=== PATIENT | male | born 1930 | race Caucasian/White ===

== ENCOUNTER 2017-11-03 16:10 | Inpatient (IN) | payer MEDICARE, BC ==
[~2017-11-03] VITALS: Ht 170.2 cm; Wt 69.4 kg
[~2017-11-03 16:10] MED LIST: ADV50250 IH; ALBU18HF2 IH; LISI10TA4 PO; LOVA10TA56 PO; NORCO10T PO; PLE50T PO
[2017-11-03 16:53] LABS: BASOPHILS % (AUTO) 0.2 % (0-1); EOSINOPHILS % (AUTO) 0 % (0-6); HEMATOCRIT 33.4 % (42.0-52.0); HEMOGLOBIN 11.7 g/dl (14.0-17.9); LYMPHOCYTES # (AUTO) 0.4 X10'3 (1.1-4.8); LYMPHOCYTES % (AUTO) 2.3 % (21-51); MEAN CORPUSCULAR HEMOGLOBIN 31.4 PG (27.0-31.0); MEAN CORPUSCULAR VOLUME 89.6 FL (78-98); MEAN PLATELET VOLUME 8.8 FL (7.4-10.4); MONOCYTES # (AUTO) 1.5 X10'3 (0-0.9); MONOCYTES % (AUTO) 9.1 % (2-12); NEUTROPHILS # (AUTO) 14.9 X10'3 (1.8-7.7); NEUTROPHILS % (AUTO) 88.4 % (42-75); PLATELET COUNT 206 X10'3 (140-440); RED BLOOD COUNT 3.73 X10'6 (4.70-6.10); RED CELL DISTRIBUTION WIDTH 14.3 % (11.5-14.5); WHITE BLOOD COUNT 16.9 X10'3 (4.5-11.0)
[2017-11-03] MEDS ORDERED: azithromycin/NS 500mg/250ml 250 ML IV ONE (17:00)
[2017-11-03] MEDS ORDERED: ipratropium/albuterol 3ml nebule NEB ONE (17:00)
[2017-11-03] MEDS ORDERED: CefTRIAXone 2gm/D5W 50ml 50 ML IV ONE (17:00)
[2017-11-03] MEDS ORDERED: methylPREDNISolone sod succ 125mg/2ml vial IV ONE (17:00)
[2017-11-03 17:03] LABS: INR 1.1 INR; PARTIAL THROMBOPLASTIN TIME 30 SECONDS (22-32); PROTHROMBIN TIME 11.1 SECONDS (9.0-12.0)
[2017-11-03 17:06] LABS: TOTAL CELLS COUNTED 100
[2017-11-03 17:07] LABS: PLATELET ESTIMATE NORMAL
[2017-11-03 17:08] LABS: ALANINE AMINOTRANSFERASE 24 U/L (12-78); ALBUMIN 3.5 G/DL (3.4-5.0); ALBUMIN/GLOBULIN RATIO 0.8 (1.1-1.5); ALKALINE PHOSPHATASE 88 IU/L (46-116); ANION GAP 13 (8-16); ASPARTATE AMINO TRANSFERASE 21 U/L (10-37); BILIRUBIN,TOTAL 1.2 MG/DL (0.1-1.0); BLOOD UREA NITROGEN 37 MG/DL (7-18); BUN/CREATININE RATIO 23.4 (5.4-32.0); CALCIUM 8.7 MG/DL (8.5-10.1); CHLORIDE 103 MMOL/L (99-107); CREATININE 1.58 MG/DL (0.60-1.10); GLUCOSE 152 MG/DL (70-104); POTASSIUM 3.6 MMOL/L (3.5-5.1); SODIUM 136 MMOL/L (135-145); TOTAL CARBON DIOXIDE 19.8 MMOL/L (24-32); eGFR 42 ML/MIN
[2017-11-03] MEDS ORDERED: AMLO5TAB PO (17:15)
[2017-11-03] MEDS ORDERED: normal saline 1000ML IV soln IVB ONE (17:20)
[2017-11-03] MEDS ORDERED: acetaminophen 325mg tablet PO PRN (17:45)
[2017-11-03] MEDS ORDERED: magnesium hydroxide 30ml (MOM) UD suspension PO PRN (17:45)
[2017-11-03] MEDS ORDERED: diltiazem 30mg tablet PO ONE (17:50)
[2017-11-03] MEDS: magnesium 1gm/100ml D5W IVPB 100 ML IV SCH ×2 (17:52→18:11)
[2017-11-03] MEDS: normal saline 1000ml 1,000 ML IV SCH (18:02)
[2017-11-03] MEDS ORDERED: enoxaparin 60mg/0.6ml syringe SUBCUT ONE (18:05)
[2017-11-03 18:30] VITALS: BP 137/60
[2017-11-03] MEDS: ipratropium/albuterol 3ml nebule NEB SCH ×2 (19:39→23:30)
[2017-11-03] MEDS: diltiazem 30mg tablet PO SCH (19:44)
[2017-11-03] MEDS: methylPREDNISolone sod succ 125mg/2ml vial IV SCH (19:44)
[2017-11-03] MEDS ORDERED: heparin, porcine 5000 units/ml vial SQ SCH (20:00)
[2017-11-03 23:00] VITALS: BP 120/49
[2017-11-04] MEDS: diltiazem 30mg tablet PO SCH ×4 (02:41→19:31)
[2017-11-04] MEDS: methylPREDNISolone sod succ 125mg/2ml vial IV SCH ×3 (02:41→19:31)
[2017-11-04 03:00] VITALS: BP 137/56
[2017-11-04] MEDS: ipratropium/albuterol 3ml nebule NEB SCH ×6 (03:26→23:30)
[2017-11-04] MEDS: normal saline 1000ml 1,000 ML IV SCH ×2 (04:32→13:42)
[2017-11-04 05:04] LABS: BASOPHILS % (AUTO) 0 % (0-1); EOSINOPHILS # (AUTO) 0.1 X10'3 (0-0.9); EOSINOPHILS % (AUTO) 1.2 % (0-6); HEMATOCRIT 29.2 % (42.0-52.0); HEMOGLOBIN 9.9 g/dl (14.0-17.9); LYMPHOCYTES # (AUTO) 0.3 X10'3 (1.1-4.8); LYMPHOCYTES % (AUTO) 2.2 % (21-51); MEAN CORPUSCULAR HEMOGLOBIN 30.8 PG (27.0-31.0); MEAN CORPUSCULAR HGB CONC 33.9 % (33.0-36.5); MEAN CORPUSCULAR VOLUME 90.8 FL (78-98); MEAN PLATELET VOLUME 9.2 FL (7.4-10.4); MONOCYTES # (AUTO) 0.3 X10'3 (0-0.9); MONOCYTES % (AUTO) 2.8 % (2-12); NEUTROPHILS # (AUTO) 11.4 X10'3 (1.8-7.7); NEUTROPHILS % (AUTO) 93.8 % (42-75); PLATELET COUNT 152 X10'3 (140-440); RED BLOOD COUNT 3.21 X10'6 (4.70-6.10); RED CELL DISTRIBUTION WIDTH 14.4 % (11.5-14.5); WHITE BLOOD COUNT 12.1 X10'3 (4.5-11.0)
[2017-11-04 05:56] LABS: ALBUMIN 2.7 G/DL (3.4-5.0); ANION GAP 14 (8-16); BLOOD UREA NITROGEN 33 MG/DL (7-18); BUN/CREATININE RATIO 24.3 (5.4-32.0); CALCIUM 7.4 MG/DL (8.5-10.1); CHLORIDE 105 MMOL/L (99-107); CREATININE 1.36 MG/DL (0.60-1.10); GLUCOSE 261 MG/DL (70-104); POTASSIUM 3.4 MMOL/L (3.5-5.1); SODIUM 135 MMOL/L (135-145); TOTAL CARBON DIOXIDE 16.5 MMOL/L (24-32); eGFR 50 ML/MIN
[2017-11-04 07:00] VITALS: BP 97/55
[2017-11-04] MEDS: azithromycin/NS 500mg/250ml 250 ML IV SCH (08:33)
[2017-11-04] MEDS: CefTRIAXone 2gm/D5W 50ml 50 ML IV SCH (08:33)
[2017-11-04 11:00] VITALS: BP 132/59
[2017-11-04] MEDS ORDERED: albuterol 2.5 MG/3 ML nebule NEB PRN (13:00)
[2017-11-04] MEDS: apixaban 5mg tablet PO SCH ×2 (13:04→19:32)
[2017-11-04 15:00] VITALS: BP 137/64
[2017-11-04 19:00] VITALS: BP 138/66
[2017-11-04] MEDS: lactobacillus rhamnosus 10,000 MMU CELLS/CAPSULE PO SCH (19:32)
[2017-11-04] MEDS: cilostazol 50mg tablet PO SCH (19:33)
[2017-11-04] MEDS: budesonide 0.5mg/2ml UD nebule IH SCH (20:14)
[2017-11-04] MEDS: ondansetron/PF 4mg/2ml inj IV PRN (22:59)
[2017-11-04 23:00] VITALS: BP 138/75
[2017-11-05] MEDS: normal saline 1000ml 1,000 ML IV SCH (01:13)
[2017-11-05] MEDS: diltiazem 30mg tablet PO SCH ×4 (01:13→21:10)
[2017-11-05 03:00] VITALS: BP 130/61
[2017-11-05] MEDS: ipratropium/albuterol 3ml nebule NEB SCH ×6 (03:24→23:31)
[2017-11-05 05:09] LABS: BASOPHILS % (AUTO) 0 % (0-1); EOSINOPHILS % (AUTO) 0 % (0-6); HEMATOCRIT 31.1 % (42.0-52.0); HEMOGLOBIN 10.6 g/dl (14.0-17.9); LYMPHOCYTES # (AUTO) 0.3 X10'3 (1.1-4.8); LYMPHOCYTES % (AUTO) 1.4 % (21-51); MEAN CORPUSCULAR HEMOGLOBIN 30.6 PG (27.0-31.0); MEAN CORPUSCULAR HGB CONC 34.1 % (33.0-36.5); MEAN CORPUSCULAR VOLUME 89.7 FL (78-98); MEAN PLATELET VOLUME 9.2 FL (7.4-10.4); MONOCYTES # (AUTO) 1.1 X10'3 (0-0.9); MONOCYTES % (AUTO) 4.4 % (2-12); NEUTROPHILS # (AUTO) 23.6 X10'3 (1.8-7.7); NEUTROPHILS % (AUTO) 94.2 % (42-75); PLATELET COUNT 195 X10'3 (140-440); RED BLOOD COUNT 3.47 X10'6 (4.70-6.10); RED CELL DISTRIBUTION WIDTH 14.6 % (11.5-14.5)
[2017-11-05 05:32] LABS: ALBUMIN 2.9 G/DL (3.4-5.0); ANION GAP 12 (8-16); BLOOD UREA NITROGEN 29 MG/DL (7-18); BUN/CREATININE RATIO 22.8 (5.4-32.0); CALCIUM 7.5 MG/DL (8.5-10.1); CHLORIDE 105 MMOL/L (99-107); CREATININE 1.27 MG/DL (0.60-1.10); GLUCOSE 164 MG/DL (70-104); POTASSIUM 3.4 MMOL/L (3.5-5.1); SODIUM 136 MMOL/L (135-145); TOTAL CARBON DIOXIDE 18.8 MMOL/L (24-32); eGFR 54 ML/MIN
[2017-11-05 05:36] LABS: WHITE BLOOD COUNT 25.1 X10'3 (4.5-11.0)
[2017-11-05 06:00] LABS: PLATELET ESTIMATE NORMAL; TOTAL CELLS COUNTED 100
[2017-11-05] MEDS ORDERED: potassium Cl 20 mEq SR tablet PO PRN (06:40)
[2017-11-05] MEDS ORDERED: magnesium 1gm/100ml D5W IVPB 100 ML IV PRN (06:40)
[2017-11-05] MEDS ORDERED: magnesium Cl slow-release 64mg tablet PO PRN (06:40)
[2017-11-05] MEDS ORDERED: magnesium 4gm in 100ml NS 100 ML IV PRN (06:40)
[2017-11-05] MEDS ORDERED: potassium Cl 40MEQ/NS 500ml 500 ML IV PRN ×2 (06:40)
[2017-11-05 07:03] VITALS: BP 135/63
[2017-11-05] MEDS: atorvastatin 10mg tablet PO SCH (07:47)
[2017-11-05] MEDS: cilostazol 50mg tablet PO SCH ×2 (07:47→21:10)
[2017-11-05] MEDS: apixaban 5mg tablet PO SCH ×2 (07:48→21:10)
[2017-11-05] MEDS: lactobacillus rhamnosus 10,000 MMU CELLS/CAPSULE PO SCH ×2 (07:48→21:10)
[2017-11-05] MEDS: potassium Cl 20 mEq SR tablet PO PRN ×3 (07:48→16:48)
[2017-11-05] MEDS: lisinopril 10 MG tablet PO SCH (07:49)
[2017-11-05] MEDS: CefTRIAXone 2gm/D5W 50ml 50 ML IV SCH (07:50)
[2017-11-05] MEDS: azithromycin/NS 500mg/250ml 250 ML IV SCH (07:50)
[2017-11-05] MEDS: ondansetron/PF 4mg/2ml inj IV PRN ×3 (07:50→21:11)
[2017-11-05] MEDS: methylPREDNISolone sod succ 125mg/2ml vial IV SCH ×2 (07:50→19:54)
[2017-11-05] MEDS: budesonide 0.5mg/2ml UD nebule IH SCH ×2 (08:10→20:03)
[2017-11-05 11:00] VITALS: BP 144/57
[2017-11-05 15:00] VITALS: BP 137/55
[2017-11-05] MEDS: mag hydrox/Alum hydrox/simeth 30ml oral suspension PO PRN (16:48)
[2017-11-05 19:00] VITALS: BP 101/42
[2017-11-05] MEDS: psyllium seed 3.4 gm packet PO SCH (20:00)
[2017-11-05 23:00] VITALS: BP 126/57
[2017-11-06] VITALS (7 sets, daily range): BP systolic 107–133; BP diastolic 50–95
[2017-11-06] MEDS: ipratropium/albuterol 3ml nebule NEB SCH ×6 (03:39→23:39)
[2017-11-06] MEDS: ondansetron/PF 4mg/2ml inj IV PRN ×2 (03:51→23:00)
[2017-11-06] MEDS: diltiazem 30mg tablet PO SCH ×4 (03:52→20:33)
[2017-11-06 05:24] LABS: BASOPHILS % (AUTO) 0 % (0-1); EOSINOPHILS # (AUTO) 0.3 X10'3 (0-0.9); EOSINOPHILS % (AUTO) 1.2 % (0-6); LYMPHOCYTES # (AUTO) 0.3 X10'3 (1.1-4.8); LYMPHOCYTES % (AUTO) 1.3 % (21-51); MEAN CORPUSCULAR HEMOGLOBIN 31.2 PG (27.0-31.0); MEAN CORPUSCULAR HGB CONC 34.4 % (33.0-36.5); MEAN CORPUSCULAR VOLUME 90.7 FL (78-98); MEAN PLATELET VOLUME 9.6 FL (7.4-10.4); MONOCYTES % (AUTO) 3.9 % (2-12); NEUTROPHILS # (AUTO) 23.2 X10'3 (1.8-7.7); NEUTROPHILS % (AUTO) 93.6 % (42-75); PLATELET COUNT 216 X10'3 (140-440); RED BLOOD COUNT 3.53 X10'6 (4.70-6.10); RED CELL DISTRIBUTION WIDTH 14.3 % (11.5-14.5); WHITE BLOOD COUNT 24.8 X10'3 (4.5-11.0)
[2017-11-06 05:30] LABS: ALBUMIN 2.9 G/DL (3.4-5.0); ANION GAP 11 (8-16); BLOOD UREA NITROGEN 43 MG/DL (7-18); BUN/CREATININE RATIO 24.7 (5.4-32.0); CALCIUM 7.9 MG/DL (8.5-10.1); CHLORIDE 105 MMOL/L (99-107); CREATININE 1.74 MG/DL (0.60-1.10); GLUCOSE 143 MG/DL (70-104); MAGNESIUM 2.4 MG/DL (1.5-2.4); POTASSIUM 4.3 MMOL/L (3.5-5.1); SODIUM 135 MMOL/L (135-145); TOTAL CARBON DIOXIDE 19.2 MMOL/L (24-32); eGFR 37 ML/MIN
[2017-11-06] MEDS: budesonide 0.5mg/2ml UD nebule IH SCH ×2 (06:50→19:46)
[2017-11-06] MEDS: cilostazol 50mg tablet PO SCH ×2 (07:21→20:32)
[2017-11-06] MEDS: lisinopril 10 MG tablet PO SCH (07:21)
[2017-11-06] MEDS: apixaban 5mg tablet PO SCH (07:23)
[2017-11-06] MEDS: lactobacillus rhamnosus 10,000 MMU CELLS/CAPSULE PO SCH ×2 (07:23→20:33)
[2017-11-06] MEDS: atorvastatin 10mg tablet PO SCH (07:23)
[2017-11-06] MEDS: methylPREDNISolone sod succ 125mg/2ml vial IV SCH ×2 (07:23→20:31)
[2017-11-06] MEDS: azithromycin/NS 500mg/250ml 250 ML IV SCH (07:24)
[2017-11-06] MEDS: psyllium seed 3.4 gm packet PO SCH ×2 (07:30→20:34)
[2017-11-06 07:32] LABS: NUCLEATED RED BLOOD CELLS 5 /100WBC (0-0); PLATELET ESTIMATE NORMAL; TOTAL CELLS COUNTED 100
[2017-11-06] MEDS: CefTRIAXone 2gm/D5W 50ml 50 ML IV SCH (09:13)
[2017-11-06] MEDS ORDERED: furosemide 40mg/4ml inj IV ONE (13:00)
[2017-11-06] MEDS: apixaban 2.5mg tablet PO SCH (20:33)
[2017-11-07] MEDS: diltiazem 30mg tablet PO SCH ×4 (01:44→19:55)
[2017-11-07 03:00] VITALS: BP 144/65
[2017-11-07] MEDS: ipratropium/albuterol 3ml nebule NEB SCH ×6 (03:19→23:48)
[2017-11-07 05:01] LABS: BASOPHILS % (AUTO) 0 % (0-1); EOSINOPHILS # (AUTO) 0.3 X10'3 (0-0.9); EOSINOPHILS % (AUTO) 1.1 % (0-6); HEMOGLOBIN 10.9 g/dl (14.0-17.9); LYMPHOCYTES # (AUTO) 0.4 X10'3 (1.1-4.8); LYMPHOCYTES % (AUTO) 1.4 % (21-51); MEAN CORPUSCULAR HEMOGLOBIN 30.7 PG (27.0-31.0); MEAN CORPUSCULAR VOLUME 90.3 FL (78-98); MEAN PLATELET VOLUME 9.6 FL (7.4-10.4); MONOCYTES # (AUTO) 1.1 X10'3 (0-0.9); MONOCYTES % (AUTO) 4.2 % (2-12); NEUTROPHILS # (AUTO) 25.2 X10'3 (1.8-7.7); NEUTROPHILS % (AUTO) 93.3 % (42-75); PLATELET COUNT 227 X10'3 (140-440); RED BLOOD COUNT 3.55 X10'6 (4.70-6.10)
[2017-11-07 05:23] LABS: ALBUMIN 2.7 G/DL (3.4-5.0); ANION GAP 9 (8-16); BLOOD UREA NITROGEN 55 MG/DL (7-18); BUN/CREATININE RATIO 26.1 (5.4-32.0); CALCIUM 7.8 MG/DL (8.5-10.1); CHLORIDE 106 MMOL/L (99-107); CREATININE 2.11 MG/DL (0.60-1.10); GLUCOSE 150 MG/DL (70-104); MAGNESIUM 2.3 MG/DL (1.5-2.4); POTASSIUM 3.9 MMOL/L (3.5-5.1); SODIUM 136 MMOL/L (135-145); eGFR 30 ML/MIN
[2017-11-07 06:00] VITALS: BP 134/50
[2017-11-07 06:42] LABS: PLATELET ESTIMATE NORMAL; TOTAL CELLS COUNTED 100
[2017-11-07] MEDS: budesonide 0.5mg/2ml UD nebule IH SCH ×2 (06:49→19:06)
[2017-11-07] MEDS: lactobacillus rhamnosus 10,000 MMU CELLS/CAPSULE PO SCH ×2 (07:11→19:55)
[2017-11-07] MEDS: cilostazol 50mg tablet PO SCH ×2 (07:11→19:55)
[2017-11-07] MEDS: apixaban 2.5mg tablet PO SCH ×2 (07:12→19:55)
[2017-11-07] MEDS: lisinopril 10 MG tablet PO SCH (07:12)
[2017-11-07] MEDS: atorvastatin 10mg tablet PO SCH (07:12)
[2017-11-07] MEDS: methylPREDNISolone sod succ 125mg/2ml vial IV SCH (07:13)
[2017-11-07] MEDS: CefTRIAXone 2gm/D5W 50ml 50 ML IV SCH (07:14)
[2017-11-07] MEDS: psyllium seed 3.4 gm packet PO SCH ×2 (07:16→19:54)
[2017-11-07] MEDS: azithromycin/NS 500mg/250ml 250 ML IV SCH (07:16)
[2017-11-07 11:00] VITALS: BP 112/47
[2017-11-07] MEDS: normal saline 1000ml 1,000 ML IV SCH (13:56)
[2017-11-07 15:00] VITALS: BP 94/49
[2017-11-07 18:00] VITALS: BP 133/83
[2017-11-07 22:00] VITALS: BP 122/62
[2017-11-08] MEDS: normal saline 1000ml 1,000 ML IV SCH (01:34)
[2017-11-08] MEDS: diltiazem 30mg tablet PO SCH ×3 (01:34→14:46)
[2017-11-08] MEDS: mag hydrox/Alum hydrox/simeth 30ml oral suspension PO PRN (01:37)
[2017-11-08 02:00] VITALS: BP 116/52
[2017-11-08] MEDS: ipratropium/albuterol 3ml nebule NEB SCH ×4 (03:07→15:08)
[2017-11-08 05:39] LABS: BASOPHILS % (AUTO) 0 % (0-1); EOSINOPHILS # (AUTO) 0.3 X10'3 (0-0.9); EOSINOPHILS % (AUTO) 0.9 % (0-6); HEMATOCRIT 28.7 % (42.0-52.0); LYMPHOCYTES # (AUTO) 0.4 X10'3 (1.1-4.8); LYMPHOCYTES % (AUTO) 1.6 % (21-51); MEAN CORPUSCULAR HGB CONC 34.7 % (33.0-36.5); MEAN CORPUSCULAR VOLUME 89.5 FL (78-98); MONOCYTES # (AUTO) 1.3 X10'3 (0-0.9); MONOCYTES % (AUTO) 4.4 % (2-12); NEUTROPHILS # (AUTO) 26.3 X10'3 (1.8-7.7); NEUTROPHILS % (AUTO) 93.1 % (42-75); PLATELET COUNT 213 X10'3 (140-440); RED BLOOD COUNT 3.21 X10'6 (4.70-6.10); RED CELL DISTRIBUTION WIDTH 14.4 % (11.5-14.5)
[2017-11-08 05:47] LABS: ALBUMIN 2.5 G/DL (3.4-5.0); ANION GAP 10 (8-16); BLOOD UREA NITROGEN 62 MG/DL (7-18); CALCIUM 7.9 MG/DL (8.5-10.1); CHLORIDE 107 MMOL/L (99-107); CREATININE 1.94 MG/DL (0.60-1.10); GLUCOSE 143 MG/DL (70-104); MAGNESIUM 2.6 MG/DL (1.5-2.4); SODIUM 138 MMOL/L (135-145); TOTAL CARBON DIOXIDE 21.3 MMOL/L (24-32); eGFR 33 ML/MIN
[2017-11-08 05:51] LABS: WHITE BLOOD COUNT 28.2 X10'3 (4.5-11.0)
[2017-11-08 06:00] VITALS: BP 132/53
[2017-11-08 06:33] LABS: BURR CELLS FEW; PLATELET ESTIMATE NORMAL; TOTAL CELLS COUNTED 100
[2017-11-08] MEDS: budesonide 0.5mg/2ml UD nebule IH SCH (07:52)
[2017-11-08] MEDS: psyllium seed 3.4 gm packet PO SCH (08:00)
[2017-11-08] MEDS: atorvastatin 10mg tablet PO SCH (08:12)
[2017-11-08] MEDS: azithromycin/NS 500mg/250ml 250 ML IV SCH (08:12)
[2017-11-08] MEDS: lactobacillus rhamnosus 10,000 MMU CELLS/CAPSULE PO SCH (08:12)
[2017-11-08] MEDS: apixaban 2.5mg tablet PO SCH (08:12)
[2017-11-08] MEDS: lisinopril 10 MG tablet PO SCH (08:12)
[2017-11-08] MEDS: CefTRIAXone 2gm/D5W 50ml 50 ML IV SCH (08:12)
[2017-11-08] MEDS: cilostazol 50mg tablet PO SCH (08:12)
[2017-11-08] MEDS ORDERED: APIX2.5T PO (10:00)
[2017-11-08] MEDS ORDERED: LEVO250T2 PO (10:00)
[2017-11-08 11:00] VITALS: BP 96/62
== END 2017-11-08 16:35 | disposition home or self-care (01) | DRG 871 ==
LOC: ER 16:11 → PCU 3S 17:42 → ER 19:02
PROVIDERS: ADMIT Family Medicine; ATTEND Internal Medicine
DX: A41.9 Sepsis, unspecified organism (principal); J18.1 Lobar pneumonia, unspecified organism; J44.1 Chronic obstructive pulmonary disease with (acute) exacerbation; N17.9 Acute kidney failure, unspecified; J44.0 Chronic obstructive pulmonary disease with (acute) lower respiratory infection; I73.9 Peripheral vascular disease, unspecified; I48.0 Paroxysmal atrial fibrillation; D63.8 Anemia in other chronic diseases classified elsewhere; E78.5 Hyperlipidemia, unspecified; I12.9 Hypertensive chronic kidney disease with stage 1 through stage 4 chronic kidney disease, or unspecified chronic kidney disease; N18.3 Chronic kidney disease, stage 3 (moderate); T38.0X5A Adverse effect of glucocorticoids and synthetic analogues, initial encounter; Z99.81 Dependence on supplemental oxygen; Z79.01 Long term (current) use of anticoagulants; Z79.899 Other long term (current) drug therapy; Z87.891 Personal history of nicotine dependence; Y92.238 Other place in hospital as the place of occurrence of the external cause
CPT/HCPCS: 36415; 71045; 80048; 80053; 83605; 83735; 83880; 84145; 84484; 85025; 85610; 85730; 87040; 87070; 93005; 94640; 94667; 94668; 94760; 96365; 96375; 97110; 97116; 97161; 97530; 99285; J0456; J0696; J1650; J1940; J2405; J2930; J7030; J7626